=== PATIENT | male | born 1955 | race Two or more races ===

== ENCOUNTER → 2020-03-05 08:00 | Outpatient (CLI) | payer OTHER ==
[~2020-03-05] VITALS: Ht 170.2 cm; Wt 68.0 kg
[~2020-03-05 08:00] MED LIST: BACLOF PO; CLONAZEPAM1 MG PO; COLACE100 MG PO; DEXI PO; ENALAPRIL MALEA20 MG PO; ETO PO; PEPCID AC10 MG PO; PERCOCET 5-3251 EACH PO; SYNTHROID50 MCG PO; [UNRECOGNIZED DRUG - OTHER] NASAL
== END | disposition home or self-care (01) ==
LOC: LAB 08:00 → SURH 03-12 07:00 → EDSTATUS 03-12 10:45 → SURH 03-12 10:45
PROVIDERS: ATTEND Orthopaedic Surgery Orthopaedic Surgery of the Spine
DX: Z20.828 Contact with and (suspected) exposure to other viral communicable diseases (principal); M50.022 Cervical disc disorder at C5-C6 level with myelopathy

== ENCOUNTER 2020-04-30 12:24 | Inpatient (IN) | payer OTHER ==
[~2020-04-30] VITALS: Ht 170.2 cm; Wt 68.0 kg
[~2020-04-30 12:24] MED LIST changes: -CLONAZEPAM1 MG PO; -COLACE100 MG PO; -PERCOCET 5-3251 EACH PO
[2020-05-07] MEDS ORDERED: PERCOCET 5-3251 EACH PO (08:54)
[2020-05-07] MEDS ORDERED: CLONAZEPAM1 MG PO (08:55)
[2020-05-07] MEDS ORDERED: COLACE100 MG PO (08:55)
== END 2020-05-08 14:52 | disposition home or self-care (01) | DRG 473 ==
LOC: O/R 05-07 05:05 → SURH 05-07 05:05
PROVIDERS: ADMIT Orthopaedic Surgery Orthopaedic Surgery of the Spine; ATTEND Orthopaedic Surgery Orthopaedic Surgery of the Spine
PROC: 0RG2070 Fusion of 2 or more Cervical Vertebral Joints with Autologous Tissue Substitute, Anterior Approach, Anterior Column, Open Approach (ICD-10-PCS; 2020-05-07)
PROC: 0RB30ZZ Excision of Cervical Vertebral Disc, Open Approach (ICD-10-PCS; 2020-05-07)
PROC: 3E0U0GB Introduction of Recombinant Bone Morphogenetic Protein into Joints, Open Approach (ICD-10-PCS; 2020-05-07)
PROC: 07DS3ZZ Extraction of Vertebral Bone Marrow, Percutaneous Approach (ICD-10-PCS; 2020-05-07)
PROC: 0RG20A0 Fusion of 2 or more Cervical Vertebral Joints with Interbody Fusion Device, Anterior Approach, Anterior Column, Open Approach (ICD-10-PCS; principal; 2020-05-07 09:45)
DX: M50.022 Cervical disc disorder at C5-C6 level with myelopathy (principal)